=== PATIENT | male | born 1975 | race Caucasian/White ===

== ENCOUNTER 2018-08-16 09:12 | Emergency (ER) | payer OTHER ==
[~2018-08-16] VITALS: Ht 188 cm; Wt 122.5 kg
[2018-08-16 09:20] VITALS: Ht 188 cm; Wt 122.5 kg
[2018-08-16 10:12] VITALS: BP 120/75
== END 2018-08-16 10:12 | disposition home or self-care (01) ==
LOC: ED 09:12
DX: L25.9 Unspecified contact dermatitis, unspecified cause (principal); J45.909 Unspecified asthma, uncomplicated
CPT/HCPCS: J2930

== ENCOUNTER 2018-12-18 10:32 | Emergency (ER) | payer OTHER ==
[~2018-12-18] VITALS: Ht 188 cm; Wt 120.7 kg
[2018-12-18 10:34] VITALS: BP 130/93; Ht 188 cm; Wt 120.7 kg
== END 2018-12-18 11:01 | disposition home or self-care (01) ==
LOC: ED 10:32
DX: J45.909 Unspecified asthma, uncomplicated (principal); K21.9 Gastro-esophageal reflux disease without esophagitis; F17.210 Nicotine dependence, cigarettes, uncomplicated; Z76.0 Encounter for issue of repeat prescription; Z90.89 Acquired absence of other organs
CPT/HCPCS: 99406

== ENCOUNTER 2019-02-19 02:56 | Emergency (ER) | payer OTHER ==
[~2019-02-19] VITALS: Ht 188 cm; Wt 120.7 kg
[2019-02-19 03:00] VITALS: Ht 188 cm; Wt 120.7 kg
[2019-02-19 03:05] VITALS: BP 139/89
== END 2019-02-19 03:05 | disposition left against medical advice (07) ==
LOC: ED 02:56
DX: Z53.21 Procedure and treatment not carried out due to patient leaving prior to being seen by health care provider (principal)

== ENCOUNTER 2019-03-03 14:34 | Emergency (ER) | payer OTHER ==
[~2019-03-03] VITALS: Ht 188 cm; Wt 120.2 kg
[2019-03-03 14:48] VITALS: Ht 188 cm; Wt 120.2 kg
[2019-03-03 17:17] VITALS: BP 145/74
== END 2019-03-03 17:18 | disposition home or self-care (01) ==
LOC: ED 14:34
DX: M10.071 Idiopathic gout, right ankle and foot (principal); J45.909 Unspecified asthma, uncomplicated; K21.9 Gastro-esophageal reflux disease without esophagitis; Z90.89 Acquired absence of other organs; Z76.0 Encounter for issue of repeat prescription